=== PATIENT | male | born 1980 ===

== ENCOUNTER 2024-10-03 19:32 | Emergency (ER) | payer SELFPAY ==
[~2024-10-03] VITALS: Ht 190.5 cm; Wt 122.5 kg
[2024-10-03 20:53] LABS: BASOPHILS ABSOLUTE AUTO 0.05 K/mm3 (0.00-0.23); BASOPHILS PERCENT AUTO 0 % (0-2); EOSINOPHILS ABSOLUTE AUTO 0.37 K/mm3 (0.00-0.68); EOSINOPHILS PERCENT AUTO 3 % (0-6); Hematocrit 34.6 % (37.0-53.0); IMMATURE GRAN ABSOLUTE AUTO 0.11 K/mm3 (0.00-0.10); IMMATURE GRAN PERCENT AUTO 1 % (0-1); LYMPHOCYTES ABSOLUTE AUTO 2.43 K/mm3 (0.84-5.20); LYMPHOCYTES PERCENT AUTO 20 % (21-46); MONOCYTES PERCENT AUTO 7 % (4-13); Mean Corpuscular HGB 27.8 pg (26.0-34.0); Mean Corpuscular HGB Conc 34.7 g/dL (31.5-36.5); Mean Corpuscular Volume 80 fL (80-100); NEUTROPHILS ABSOLUTE AUTO 8.55 K/mm3 (1.96-9.15); NEUTROPHILS PERCENT AUTO 70 % (41-73); RDW Standard Deviation 35.2 fL (35.1-46.3); Red Blood Cell Count 4.32 M/mm3 (4.30-5.90); White Blood Cell Count 12.31 K/mm3 (4.00-11.30)
[2024-10-03] MEDS ORDERED: AMOCLA875 PO (20:59)
[2024-10-03] MEDS ORDERED: CIPR750 (20:59)
[2024-10-03 21:04] LABS: Albumin, Blood 2.9 g/dL (3.4-5.0); Albumin/Globulin Ratio 0.5 (0.8-1.8); Bilirubin, Total 0.6 mg/dL (0.1-1.0); Bun/Creatinine Ratio 22.1 (12.0-20.0); Calcium, Blood 9.5 mg/dL (8.5-10.1); Creatinine, Blood 0.68 mg/dL (0.60-1.20); Globulin, Blood 5.6 g/dL (2.2-4.0); Potassium, Blood 4.8 mmol/L (3.5-5.5); Total Protein, Blood 8.5 g/dL (6.4-8.2)
[2024-10-03 21:13] LABS: Platelet Count 349 K/mm3 (150-400)
[2024-10-03 21:14] LABS: Mean Platelet Volume 9.6 fL (9.1-12.4)
[2024-10-03 21:32] LABS: Beta-hydroxybutyrate 3.6 mg/dL (0.2-2.8)
[2024-10-03 21:38] LABS: Base Excess Venous 6.9 mmol/L; Bicarbonate Venous 29.5 mmol/L (24.0-30.0); PCO2 Venous 45.1 mmHg (38-42); pH Blood Venous 7.45 (7.34-7.37)
== END 2024-10-03 22:05 | disposition home or self-care (01) ==
LOC: ER 19:32
PROVIDERS: Emergency Medicine; Student in an Organized Health Care Education/Training Program
DX: E11.65 Type 2 diabetes mellitus with hyperglycemia (principal); N43.3 Hydrocele, unspecified
CPT/HCPCS: 76870; 80053; 82010; 82803; 82947; 85025; 99285-25

== ENCOUNTER 2025-02-08 02:01 | Day surgery (SDC) | payer OTHER ==
[~2025-02-08 02:01] MED LIST: AMOCLA875 PO; CIPR750
== END 2025-02-08 23:00 | disposition home or self-care (01) ==
LOC: WOUND 02:01
DX: E11.621 Type 2 diabetes mellitus with foot ulcer (principal); L97.425 Non-pressure chronic ulcer of left heel and midfoot with muscle involvement without evidence of necrosis; L97.423 Non-pressure chronic ulcer of left heel and midfoot with necrosis of muscle; E11.40 Type 2 diabetes mellitus with diabetic neuropathy, unspecified; Z89.422 Acquired absence of other left toe(s)
CPT/HCPCS: 73630; A6213

== ENCOUNTER 2025-02-21 01:00 | Day surgery (SDC) | payer OTHER ==
[2025-02-21] MEDS ORDERED: Lidocaine HCl 4% Cream 5 GM ONE (08:53)
== END 2025-02-21 23:00 | disposition home or self-care (01) ==
LOC: WOUND 01:00
DX: E11.621 Type 2 diabetes mellitus with foot ulcer (principal); L97.422 Non-pressure chronic ulcer of left heel and midfoot with fat layer exposed; E11.40 Type 2 diabetes mellitus with diabetic neuropathy, unspecified; Z89.422 Acquired absence of other left toe(s)
CPT/HCPCS: A6213; A9270

== ENCOUNTER 2025-02-28 00:33 | Day surgery (SDC) | payer OTHER | END 2025-02-28 23:00 | disposition home or self-care (01) | LOC: WOUND 00:33 | DX: E11.621 Type 2 diabetes mellitus with foot ulcer (principal); L97.425 Non-pressure chronic ulcer of left heel and midfoot with muscle involvement without evidence of necrosis; E11.40 Type 2 diabetes mellitus with diabetic neuropathy, unspecified; Z89.422 Acquired absence of other left toe(s) | CPT/HCPCS: A6213 ==

== ENCOUNTER 2025-03-02 01:39 | Day surgery (SDC) | payer OTHER | END 2025-03-02 23:00 | disposition home or self-care (01) | LOC: HBO 01:39 | DX: E11.621 Type 2 diabetes mellitus with foot ulcer (principal); L97.423 Non-pressure chronic ulcer of left heel and midfoot with necrosis of muscle | CPT/HCPCS: 82947; G0277 ==

== ENCOUNTER 2025-03-03 01:50 | Day surgery (SDC) | payer OTHER | END 2025-03-03 23:00 | disposition home or self-care (01) | LOC: HBO 01:50 | DX: E11.621 Type 2 diabetes mellitus with foot ulcer (principal); L97.423 Non-pressure chronic ulcer of left heel and midfoot with necrosis of muscle; Z89.422 Acquired absence of other left toe(s) | CPT/HCPCS: 82947; G0277 ==

== ENCOUNTER 2025-03-04 00:34 | Day surgery (SDC) | payer OTHER | END 2025-03-04 23:00 | disposition home or self-care (01) | LOC: HBO 00:34 | DX: E11.621 Type 2 diabetes mellitus with foot ulcer (principal); L97.423 Non-pressure chronic ulcer of left heel and midfoot with necrosis of muscle; Z89.422 Acquired absence of other left toe(s) | CPT/HCPCS: G0463 ==

== ENCOUNTER 2025-03-07 00:22 | Day surgery (SDC) | payer OTHER | END 2025-03-07 23:01 | disposition home or self-care (01) | LOC: HBO 00:22 | DX: E11.621 Type 2 diabetes mellitus with foot ulcer (principal); L97.423 Non-pressure chronic ulcer of left heel and midfoot with necrosis of muscle; Z89.422 Acquired absence of other left toe(s) | CPT/HCPCS: 82947; G0277 ==

== ENCOUNTER 2025-03-08 00:40 | Day surgery (SDC) | payer OTHER | END 2025-03-08 22:44 | disposition home or self-care (01) | LOC: HBO 00:40 | DX: E11.621 Type 2 diabetes mellitus with foot ulcer (principal); L97.423 Non-pressure chronic ulcer of left heel and midfoot with necrosis of muscle; Z89.422 Acquired absence of other left toe(s) | CPT/HCPCS: 82947; G0277 ==

== ENCOUNTER 2025-03-09 00:14 | Day surgery (SDC) | payer OTHER | END 2025-03-09 23:00 | disposition home or self-care (01) | LOC: HBO 00:14 | DX: E11.621 Type 2 diabetes mellitus with foot ulcer (principal); L97.423 Non-pressure chronic ulcer of left heel and midfoot with necrosis of muscle; Z89.422 Acquired absence of other left toe(s) | CPT/HCPCS: 82947; G0277 ==

== ENCOUNTER 2025-03-11 02:23 | Day surgery (SDC) | payer OTHER | END 2025-03-11 23:00 | disposition home or self-care (01) | LOC: WOUND 02:23 | DX: E11.621 Type 2 diabetes mellitus with foot ulcer (principal); L97.425 Non-pressure chronic ulcer of left heel and midfoot with muscle involvement without evidence of necrosis; Z89.422 Acquired absence of other left toe(s) | CPT/HCPCS: A6213 ==

== ENCOUNTER 2025-03-11 02:41 | Day surgery (SDC) | payer OTHER | END 2025-03-11 23:00 | disposition home or self-care (01) | LOC: HBO 02:41 | DX: E11.621 Type 2 diabetes mellitus with foot ulcer (principal); L97.413 Non-pressure chronic ulcer of right heel and midfoot with necrosis of muscle; Z89.422 Acquired absence of other left toe(s) | CPT/HCPCS: 82947; G0277 ==

== ENCOUNTER 2025-03-14 00:49 | Day surgery (SDC) | payer OTHER | END 2025-03-14 22:00 | disposition home or self-care (01) | LOC: HBO 00:49 | DX: E11.621 Type 2 diabetes mellitus with foot ulcer (principal); L97.423 Non-pressure chronic ulcer of left heel and midfoot with necrosis of muscle; Z89.422 Acquired absence of other left toe(s) ==

== ENCOUNTER 2025-03-15 01:06 | Day surgery (SDC) | payer OTHER | END 2025-03-15 22:48 | disposition home or self-care (01) | LOC: HBO 01:06 | DX: E11.621 Type 2 diabetes mellitus with foot ulcer (principal); L97.423 Non-pressure chronic ulcer of left heel and midfoot with necrosis of muscle; Z89.422 Acquired absence of other left toe(s) | CPT/HCPCS: 82947; G0277 ==

== ENCOUNTER 2025-03-15 01:14 | Day surgery (SDC) | payer OTHER | END 2025-03-15 22:48 | disposition home or self-care (01) | LOC: WOUND 01:14 | DX: E11.621 Type 2 diabetes mellitus with foot ulcer (principal); L97.423 Non-pressure chronic ulcer of left heel and midfoot with necrosis of muscle; L97.522 Non-pressure chronic ulcer of other part of left foot with fat layer exposed; E11.40 Type 2 diabetes mellitus with diabetic neuropathy, unspecified; Z89.422 Acquired absence of other left toe(s) | CPT/HCPCS: A6213 ==

== ENCOUNTER 2025-03-17 00:22 | Day surgery (SDC) | payer OTHER | END 2025-03-17 23:00 | disposition home or self-care (01) | LOC: HBO 00:22 | DX: E11.621 Type 2 diabetes mellitus with foot ulcer (principal); L97.423 Non-pressure chronic ulcer of left heel and midfoot with necrosis of muscle; Z89.422 Acquired absence of other left toe(s) | CPT/HCPCS: 82947; G0277 ==

== ENCOUNTER 2025-03-19 03:08 | Day surgery (SDC) | payer OTHER | END 2025-03-19 23:00 | disposition home or self-care (01) | LOC: HBO 03:08 | DX: E11.621 Type 2 diabetes mellitus with foot ulcer (principal); L97.423 Non-pressure chronic ulcer of left heel and midfoot with necrosis of muscle; Z89.422 Acquired absence of other left toe(s) | CPT/HCPCS: 82947; G0277 ==

== ENCOUNTER 2025-03-21 00:34 | Day surgery (SDC) | payer OTHER | END 2025-03-21 23:00 | disposition home or self-care (01) | LOC: HBO 00:34 | DX: E11.621 Type 2 diabetes mellitus with foot ulcer (principal); L97.423 Non-pressure chronic ulcer of left heel and midfoot with necrosis of muscle; Z89.422 Acquired absence of other left toe(s) | CPT/HCPCS: 82947; G0277 ==

== ENCOUNTER 2025-03-22 01:36 | Day surgery (SDC) | payer OTHER | END 2025-03-22 22:00 | disposition home or self-care (01) | LOC: WOUND 01:36 | DX: E11.621 Type 2 diabetes mellitus with foot ulcer (principal); L97.423 Non-pressure chronic ulcer of left heel and midfoot with necrosis of muscle; L97.522 Non-pressure chronic ulcer of other part of left foot with fat layer exposed; E11.40 Type 2 diabetes mellitus with diabetic neuropathy, unspecified; Z89.422 Acquired absence of other left toe(s) ==

== ENCOUNTER 2025-03-22 01:50 | Day surgery (SDC) | payer OTHER | END 2025-03-22 22:00 | disposition home or self-care (01) | LOC: HBO 01:50 | DX: E11.621 Type 2 diabetes mellitus with foot ulcer (principal); L97.423 Non-pressure chronic ulcer of left heel and midfoot with necrosis of muscle; Z89.422 Acquired absence of other left toe(s) | CPT/HCPCS: 82947; G0277 ==

== ENCOUNTER 2025-03-23 01:06 | Day surgery (SDC) | payer OTHER | END 2025-03-23 23:00 | disposition home or self-care (01) | LOC: HBO 01:06 | DX: E11.621 Type 2 diabetes mellitus with foot ulcer (principal); L97.423 Non-pressure chronic ulcer of left heel and midfoot with necrosis of muscle; Z89.422 Acquired absence of other left toe(s) | CPT/HCPCS: 82947; G0277 ==

== ENCOUNTER 2025-03-28 07:21 | Day surgery (SDC) | payer OTHER | END 2025-03-28 23:16 | disposition home or self-care (01) | LOC: HBO 07:21 | DX: E11.621 Type 2 diabetes mellitus with foot ulcer (principal); L97.423 Non-pressure chronic ulcer of left heel and midfoot with necrosis of muscle; Z89.422 Acquired absence of other left toe(s) | CPT/HCPCS: 82947; G0277 ==

== ENCOUNTER 2025-03-30 00:24 | Day surgery (SDC) | payer OTHER | END 2025-03-30 23:21 | disposition home or self-care (01) | LOC: HBO 00:24 | DX: E11.621 Type 2 diabetes mellitus with foot ulcer (principal); L97.423 Non-pressure chronic ulcer of left heel and midfoot with necrosis of muscle; Z89.422 Acquired absence of other left toe(s) | CPT/HCPCS: 82947; G0277 ==

== ENCOUNTER 2025-03-31 02:09 | Day surgery (SDC) | payer OTHER | END 2025-03-31 23:00 | disposition home or self-care (01) | LOC: HBO 02:09 | DX: E11.621 Type 2 diabetes mellitus with foot ulcer (principal); L97.423 Non-pressure chronic ulcer of left heel and midfoot with necrosis of muscle; Z89.422 Acquired absence of other left toe(s) | CPT/HCPCS: 82947; G0277 ==

== ENCOUNTER 2025-03-31 02:13 | Day surgery (SDC) | payer OTHER | END 2025-03-31 23:00 | disposition home or self-care (01) | LOC: WOUND 02:13 | DX: E11.621 Type 2 diabetes mellitus with foot ulcer (principal); L97.425 Non-pressure chronic ulcer of left heel and midfoot with muscle involvement without evidence of necrosis; L97.522 Non-pressure chronic ulcer of other part of left foot with fat layer exposed; Z89.422 Acquired absence of other left toe(s) ==

== ENCOUNTER 2025-04-01 03:09 | Day surgery (SDC) | payer OTHER | END 2025-04-01 23:00 | disposition home or self-care (01) | LOC: HBO 03:09 | DX: E11.621 Type 2 diabetes mellitus with foot ulcer (principal); L97.423 Non-pressure chronic ulcer of left heel and midfoot with necrosis of muscle; Z89.422 Acquired absence of other left toe(s) | CPT/HCPCS: 82947; G0277 ==

== ENCOUNTER 2025-04-04 02:40 | Day surgery (SDC) | payer OTHER | END 2025-04-04 23:56 | disposition home or self-care (01) | LOC: HBO 02:40 | DX: E11.621 Type 2 diabetes mellitus with foot ulcer (principal); L97.423 Non-pressure chronic ulcer of left heel and midfoot with necrosis of muscle; Z89.422 Acquired absence of other left toe(s) | CPT/HCPCS: 82947; G0277 ==

== ENCOUNTER 2025-04-05 02:23 | Day surgery (SDC) | payer OTHER | END 2025-04-05 23:16 | disposition home or self-care (01) | LOC: WOUND 02:23 | DX: E11.621 Type 2 diabetes mellitus with foot ulcer (principal); L97.423 Non-pressure chronic ulcer of left heel and midfoot with necrosis of muscle; L97.522 Non-pressure chronic ulcer of other part of left foot with fat layer exposed; E11.40 Type 2 diabetes mellitus with diabetic neuropathy, unspecified; Z89.422 Acquired absence of other left toe(s) ==

== ENCOUNTER 2025-04-05 02:31 | Day surgery (SDC) | payer OTHER | END 2025-04-05 23:16 | disposition home or self-care (01) | LOC: HBO 02:31 | DX: E11.621 Type 2 diabetes mellitus with foot ulcer (principal); L97.423 Non-pressure chronic ulcer of left heel and midfoot with necrosis of muscle; Z89.422 Acquired absence of other left toe(s) | CPT/HCPCS: 82947; G0277 ==

== ENCOUNTER 2025-04-06 00:22 | Day surgery (SDC) | payer OTHER | END 2025-04-06 23:00 | disposition home or self-care (01) | LOC: HBO 00:22 | DX: E11.621 Type 2 diabetes mellitus with foot ulcer (principal); L97.423 Non-pressure chronic ulcer of left heel and midfoot with necrosis of muscle; Z89.422 Acquired absence of other left toe(s) | CPT/HCPCS: 82947; G0277 ==

== ENCOUNTER 2025-04-07 04:22 | Day surgery (SDC) | payer OTHER | END 2025-04-07 23:00 | disposition home or self-care (01) | LOC: HBO 04:22 → EDSTATUS 09:48 → HBO 09:51 | DX: E11.621 Type 2 diabetes mellitus with foot ulcer (principal); L97.423 Non-pressure chronic ulcer of left heel and midfoot with necrosis of muscle; Z89.422 Acquired absence of other left toe(s) | CPT/HCPCS: 82947; G0277 ==

== ENCOUNTER 2025-04-08 06:46 | Day surgery (SDC) | payer OTHER | END 2025-04-08 23:00 | disposition home or self-care (01) | LOC: HBO 06:46 | DX: E11.621 Type 2 diabetes mellitus with foot ulcer (principal); L97.423 Non-pressure chronic ulcer of left heel and midfoot with necrosis of muscle; Z89.422 Acquired absence of other left toe(s) | CPT/HCPCS: 82947; G0277 ==

== ENCOUNTER 2025-04-11 00:19 | Day surgery (SDC) | payer OTHER | END 2025-04-11 23:00 | disposition home or self-care (01) | LOC: HBO 00:19 | DX: E11.621 Type 2 diabetes mellitus with foot ulcer (principal); L97.423 Non-pressure chronic ulcer of left heel and midfoot with necrosis of muscle; Z89.422 Acquired absence of other left toe(s) | CPT/HCPCS: 82947; G0277 ==

== ENCOUNTER 2025-04-12 00:34 | Day surgery (SDC) | payer OTHER | END 2025-04-12 23:01 | disposition home or self-care (01) | LOC: HBO 00:34 | DX: E11.621 Type 2 diabetes mellitus with foot ulcer (principal); L97.423 Non-pressure chronic ulcer of left heel and midfoot with necrosis of muscle; Z89.422 Acquired absence of other left toe(s) | CPT/HCPCS: 82947; G0277 ==

== ENCOUNTER 2025-04-12 11:51 | Day surgery (SDC) | payer OTHER | END 2025-04-12 23:01 | disposition home or self-care (01) | LOC: WOUND 11:51 | DX: E11.621 Type 2 diabetes mellitus with foot ulcer (principal); L97.423 Non-pressure chronic ulcer of left heel and midfoot with necrosis of muscle; L97.522 Non-pressure chronic ulcer of other part of left foot with fat layer exposed; E11.40 Type 2 diabetes mellitus with diabetic neuropathy, unspecified; Z89.422 Acquired absence of other left toe(s) ==

== ENCOUNTER 2025-04-13 01:11 | Day surgery (SDC) | payer OTHER | END 2025-04-13 23:49 | disposition home or self-care (01) | LOC: HBO 01:11 | DX: E11.621 Type 2 diabetes mellitus with foot ulcer (principal); L97.423 Non-pressure chronic ulcer of left heel and midfoot with necrosis of muscle; Z89.422 Acquired absence of other left toe(s) | CPT/HCPCS: 82947; G0277 ==

== ENCOUNTER → 2025-04-25 | Day surgery (SDC) | payer OTHER | LOC: WOUND 15:00 | DX: E11.621 Type 2 diabetes mellitus with foot ulcer (principal); L97.425 Non-pressure chronic ulcer of left heel and midfoot with muscle involvement without evidence of necrosis; L97.522 Non-pressure chronic ulcer of other part of left foot with fat layer exposed; E11.40 Type 2 diabetes mellitus with diabetic neuropathy, unspecified; Z89.422 Acquired absence of other left toe(s) | CPT/HCPCS: A6196 ==

== ENCOUNTER → 2025-04-25 | Day surgery (SDC) | payer OTHER | LOC: HBO 14:32 | DX: E11.621 Type 2 diabetes mellitus with foot ulcer (principal); L97.423 Non-pressure chronic ulcer of left heel and midfoot with necrosis of muscle; Z89.422 Acquired absence of other left toe(s) | CPT/HCPCS: 82947; G0277 ==

== ENCOUNTER 2025-04-26 10:00 | Day surgery (SDC) | payer OTHER | END 2025-04-26 23:00 | disposition home or self-care (01) | LOC: HBO 10:00 | DX: E11.621 Type 2 diabetes mellitus with foot ulcer (principal); L97.423 Non-pressure chronic ulcer of left heel and midfoot with necrosis of muscle; Z89.422 Acquired absence of other left toe(s) | CPT/HCPCS: 82947; G0277 ==

== ENCOUNTER 2025-04-27 07:52 | Day surgery (SDC) | payer OTHER | END 2025-04-27 23:00 | disposition home or self-care (01) | LOC: HBO 07:52 | DX: E11.621 Type 2 diabetes mellitus with foot ulcer (principal); L97.423 Non-pressure chronic ulcer of left heel and midfoot with necrosis of muscle; Z89.422 Acquired absence of other left toe(s) | CPT/HCPCS: 82947; G0277 ==